=== PATIENT | male | born 1995 | race Two or more races ===

== ENCOUNTER 2024-09-11 20:56 | Emergency (ER) | payer MEDICAID ==
[~2024-09-11] VITALS: Ht 170.2 cm; Wt 74.8 kg
[2024-09-11 22:01] LABS: BASOPHILS % (AUTO) 0.4 % (0.0-2.0); EOSINOPHILS # (AUTO) 0.4 K/uL (0.0-0.7); HEMATOCRIT 43 % (39-51); HEMOGLOBIN 14.6 g/dL (13.5-17.5); LYMPHOCYTES # (AUTO) 3.2 K/uL (0.8-4.8); LYMPHOCYTES % (AUTO) 38.1 % (20.0-44.0); MEAN CORPUSCULAR HEMOGLOBIN 28 PG (26.0-33.0); MEAN CORPUSCULAR HGB CONC 34 g/dl (31.0-36.0); MEAN CORPUSCULAR VOLUME 84 fL (80-96); MONOCYTES # (AUTO) 0.7 K/uL (0.1-1.30); MONOCYTES % (AUTO) 7.8 % (2.0-12.0); NEUTROPHILS # (AUTO) 4.1 K/uL (1.8-8.9); NEUTROPHILS % (AUTO) 48.7 % (43.0-81.0); PLATELET COUNT (AUTO) 349 K/uL (150-450); RED BLOOD CELL COUNT(AUTO) 5.15 MIL/uL (4.5-6.0); RED CELL DISTRIBUTION WIDTH 13.1 % (11.5-15.0); WHITE BLOOD COUNT (AUTO) 8.5 K/uL (4.3-11.0)
[2024-09-11 22:10] LABS: CALCIUM, SERUM 9.7 mg/dL (8.5-10.1); CARBON DIOXIDE 28 mmol/L (21-32); CHLORIDE 103 mmol/L (98-107); CREATININE 0.9 mg/dL (0.6-1.3); GLUCOSE 91 mg/dL (74-106); SODIUM SERUM 139 mmol/L (136-145); UREA NITROGEN, BLOOD 17 mg/dL (7-18)
[2024-09-11] MEDS: KETOROLAC TROMETHAMINE 15 MG/ML VIAL IV ONE (23:02)
[2024-09-11 23:07] VITALS: BP 126/83; TEMP 98.2; O2SAT 100
== END 2024-09-11 23:08 | disposition home or self-care (01) ==
LOC: ER 20:59
DX: R07.89 Other chest pain (principal)
CPT/HCPCS: 36415; 71045-TC; 80048-TC; 84484-TC; 85025-TC

== ENCOUNTER 2024-11-09 18:02 | Emergency (ER) | payer OTHER ==
[~2024-11-09] VITALS: Ht 170.2 cm; Wt 74.8 kg
[2024-11-09 18:54] VITALS: BP 137/82; TEMP 97.9; O2SAT 99
[2024-11-09] MEDS ORDERED: MECLIZINE HCL 25 MG TABLET ONE (19:19)
[2024-11-09] MEDS: IV NS 0.9% 1,000 ML BAG IV ONE (19:48)
[2024-11-09] MEDS: MECLIZINE HCL 25 MG TABLET PO ONE (19:48)
[2024-11-09] MEDS ORDERED: MECL-159 PO (20:02)
== END 2024-11-09 20:06 | disposition home or self-care (01) ==
LOC: ER 18:02
DX: R42 Dizziness and giddiness (principal); R11.0 Nausea; H53.8 Other visual disturbances; R05.9 Cough, unspecified
CPT/HCPCS: 99282; J8597